=== PATIENT | female | born 1960 | race Caucasian/White ===

== ENCOUNTER → 2021-10-13 | Outpatient (CLI) | payer OTHER ==
[~2021-10-13] MED LIST: BACTRIM DS TAB1 EACH PO; BENADRYL25 MG PO; CITRACAL + BON1 EACH PO; EXCEDRIN CAPLE1 EACH PO; GLUCOSAMINE HC500 MG PO; OMEPRAZOLE 20 M20 MG PO; ONE-A-DAY WOMENS PO; PROBIOTIC1 EAC2 PO
== END ==
LOC: M.LAB 12:43
PROVIDERS: ATTEND Internal Medicine Gastroenterology
DX: Z01.812 Encounter for preprocedural laboratory examination (principal); Z20.822 Contact with and (suspected) exposure to COVID-19